=== PATIENT | male | born 1950 | race Caucasian/White ===

== ENCOUNTER 2022-06-05 11:23 | Emergency (ER) | payer MEDICARE ==
[~2022-06-05] VITALS: Ht 172.7 cm; Wt 81.8 kg
[2022-06-05 11:29] VITALS: TEMP 98.8
[2022-06-05 11:59] LABS: COLLECTION METHOD CLEAN CATCH
[2022-06-05 12:05] LABS: PH 6 (5-8); SQUAMOUS EPITHELIAL 0-2 /hpf (0-10); URINE APPEARANCE Clear (CLEAR/HAZY); URINE BACTERIA None Seen /hpf (NONE SEEN); URINE BILIRUBIN Negative (NEGATIVE); URINE BLOOD Negative (NEGATIVE); URINE COLOR Yellow (YELLOW); URINE GLUCOSE Negative (NEGATIVE); URINE KETONE Negative (NEGATIVE); URINE LEUKOCYTE ESTERASE Negative (NEGATIVE); URINE NITRATE Negative (NEGATIVE); URINE PROTEIN(semi-quant) Negative (NEGATIVE); URINE RBC 0-2 /hpf (0-2)
[2022-06-05 12:19] LABS: TRICYCLIC ANTIDEPRESS URINE NEGATIVE
[2022-06-05 12:19] LABS: BASO % 0.4 % (0.0-2.0); EOS # 0.1 K/mm3 (0.0-0.7); EOS % 1.2 % (0.0-4.0); GRAN # 3.6 K/mm3 (1.4-6.5); GRAN % 73.8 % (42.2-75.2); HEMATOCRIT 38.2 % (42.0-52.0); HEMOGLOBIN 13.4 g/dl (13.5-18.0); LYMPH # 0.8 K/mm3 (1.2-3.4); LYMPH % 16.2 % (20.0-51.0); MEAN CELL VOLUME 94 fl (80.0-100.0); MEAN CORPUSCULAR HEMOGLOBIN 33 pg (27-31); MEAN CORPUSCULAR HGB CONC 35 g/dl (33.0-37.0); MEAN PLATELET VOLUME 11.3 fl (7.4-10.4); MONO # 0.4 K/mm3 (0.1-0.6); MONO % 8.2 % (1.7-9.3); PLATELET COUNT 75 K/mm3 (130-400); RED BLOOD COUNT 4.06 M/mm3 (4.20-5.60); REDCELL DISTRIBUTION WIDTH-CV 14.2 % (11.5-14.5)
[2022-06-05 12:29] LABS: ACETAMINOPHEN < 1.0 ug/mL (10-30); ALANINE AMINOTRANSFERASE 20 U/L (0-55); ALBUMIN 4.1 gm/dL (3.4-4.8); ALCOHOL(ethanol),MEDICAL 50 mg/dL (0-10); ALKALINE PHOSPHATASE 54 U/L (40-150); ANION GAP 12 mmol/L (7-16); AST,SGOT 30 U/L (5-34); BILIRUBIN,TOTAL 1.2 mg/dL (0.2-1.2); BLOOD UREA NITROGEN 12 mg/dL (8-26); CALCIUM 9.7 mg/dL (8.4-10.2); CARBON DIOXIDE 24 mmol/L (23-31); CHLORIDE 101 mmol/L (98-107); CREATININE, serum 1.62 mg/dL (0.72-1.25); GLUCOSE 105 mg/dL (70-99); POTASSIUM 4.2 mmol/L (3.5-4.5); SALICYLATE < 5.0 mg/dL (15.0-30.0); SODIUM 137 mmol/L (136-145)
[2022-06-05 12:45] VITALS: PULSE 69
[2022-06-05] MEDS ORDERED: DAZIDOX10 MG (13:42)
[2022-06-05] MEDS ORDERED: DULCOLAX STOOL100 MG (13:43)
[2022-06-05] MEDS ORDERED: PROZAC 20MG20 MG (13:43)
[2022-06-05] MEDS ORDERED: DESYREL 100MG100 MG (13:44)
[2022-06-05] MEDS ORDERED: KEPPRA1000 MG (13:48)
[2022-06-05] MEDS ORDERED: NORVASC 10MG10 MG (13:55)
[2022-06-05] MEDS ORDERED: MOBIC15 MG (13:56)
[2022-06-05] MEDS ORDERED: ALDACTONE50 MG (13:57)
[2022-06-05 14:29] VITALS: BP 167/97
== END 2022-06-05 14:45 | disposition left against medical advice (07) ==
LOC: COL.ER 11:23
PROVIDERS: Emergency Medicine
DX: F10.939 Alcohol use, unspecified with withdrawal, unspecified (principal); R07.89 Other chest pain; R79.89 Other specified abnormal findings of blood chemistry; F17.210 Nicotine dependence, cigarettes, uncomplicated
CPT/HCPCS: J7030